=== PATIENT | female | born 1960 | race Caucasian/White ===

== ENCOUNTER 2019-03-10 17:02 | Emergency (ER) | payer MEDICAID ==
[2019-03-10 17:09] VITALS: RESP 18; TEMP 98.2; O2SAT 100
[2019-03-10 17:14] VITALS: BMI 29.5
[2019-03-10] MEDS ORDERED: Sodium Chloride 0.9% 1,000 ML IV STA (17:36)
--- NOTE | 2019-03-10 17:37 | ED PDOC ---
HPI: General Adult Time Seen by Provider: 03/10/19 17:36 Chief Complaint (Nursing): Female Genitourinary Chief Complaint (Provider): urinary hesitancy History Per: Patient (58 y/o female here with urinary hesitancy noted today. States she has had difficulty with diarrhea x 2 weeks. Notes additional back pain with radiation down left leg.) Past Medical History Reviewed: Historical Data, Nursing Documentation, Vital Signs Vital Signs: Last Vital Signs Temp 98.2 F 03/10/19 17:07 Pulse 98 H 03/10/19 17:07 Resp 18 03/10/19 17:07 BP 168/84 H 03/10/19 17:07 Pulse Ox 100 03/10/19 17:07 Primary Care Provider: FAMILY PROVIDER,NO - Family History Family History: States: No Known Family Hx - Allergies Allergies/Adverse Reactions: Allergies Allergy/AdvReac Type Severity Reaction Status Date / Time No Known Allergies Allergy Verified 03/10/19 17:16 Review of Systems ROS Statement: Except As Marked, All Systems Reviewed And Found Negative Physical Exam - Reviewed Nursing Documentation Reviewed: Yes Vital Signs Reviewed: Yes - Physical Exam Appears: Positive for: Well, Non-toxic, No Acute Distress Head Exam: Positive for: ATRAUMATIC, NORMAL INSPECTION, NORMOCEPHALIC Skin: Positive for: Normal Color, Warm, DRY Eye Exam: Positive for: EOMI, Normal appearance, PERRL ENT: Positive for: Normal ENT Inspection Neck: Positive for: Normal, Painless ROM Cardiovascular/Chest: Positive for: Regular Rate, Rhythm Respiratory: Positive for: CNT, Normal Breath Sounds Gastrointestinal/Abdominal: Positive for: Normal Exam, Soft Back: Positive for: Normal Inspection Extremity: Positive for: Normal ROM Neurological/Psych: Positive for: Awake, Alert, Normal Tone - Laboratory Results Result Diagrams: 03/10/19 17:45 03/10/19 17:45 - ECG O2 Sat by Pulse Oximetry: 100 - Progress ED Course And Treament: NS 1 liter 500ml per hour; Bladder scan in ED 77ml noted in bladder. Disposition - Clinical Impression Clinical Impression: Hyponatremia, Diarrhea - Patient ED Disposition Is Patient to be Admitted: No - Disposition Disposition: Routine/Home Disposition Time: 18:45 Condition: FAIR Instructions: Diarrhea in Adolescents and Adults, Hyponatremia Forms: [facility] ED School/Work Excuse Print Language: [place]
[2019-03-10 17:57] LABS: BASO # 0.1 K/uL (0.0-0.2); BASO % 0.8 % (0.0-2.0); EOS % 0.3 % (0.0-4.0); HEMOGLOBIN 12.8 g/dL (12.0-16.0); LYMPH # 3.7 K/uL (1.0-4.3); MEAN CELL VOLUME 91.7 fl (81.0-99.0); MEAN CORPUSCULAR HEMOGLOBIN 31.5 pg (27.0-31.0); MEAN CORPUSCULAR HGB CONC 34.4 g/dL (33.0-37.0); MEAN PLATELET VOLUME 8.3 fl (7.2-11.7); MONO # 0.4 K/uL (0.0-0.8); MONO % 5.1 % (0.0-10.0); NEUT # 4.6 K/uL (1.8-7.0); NEUT % 51.8 % (50.0-75.0); NRBC % 0.1 % (0.0-0.0); RBC 4.06 Mil/uL (3.80-5.20); RED CELL DISTRIBUTION WIDTH 12.9 % (11.5-14.5); WHITE BLOOD COUNT 8.8 K/uL (4.8-10.8)
[2019-03-10 18:02] LABS: SQUAMOUS EPITHIAL < 1 /hpf (0-5); URINE BILIRUBIN NEGATIVE (NEGATIVE); URINE BLOOD NEGATIVE (NEGATIVE); URINE CLARITY CLEAR (Clear); URINE COLOR YELLOW (YELLOW); URINE GLUCOSE (UA) NEG (NEGATIVE); URINE LEUKOCYTE ESTERASE NEG Leu/uL (Negative); URINE PROTEIN NEGATIVE (NEGATIVE); URINE UROBILINOGEN 0.2-1.0 mg/dL (0.2-1.0)
[2019-03-10 18:14] LABS: ALB/GLOB RATIO 1.6 (1.0-2.1); ALBUMIN 4.6 g/dL (3.5-5.0); ALT/SGPT 18 U/L (9-52); AST/SGOT 23 U/L (14-36); BLOOD UREA NITROGEN 6 mg/dl (7-17); CALCIUM 9.6 mg/dL (8.4-10.2); GFR NON-AFRICAN AMERICAN > 60; LIPASE 91 U/L (23-300)
[2019-03-10 19:00] VITALS: BP 152/76; PULSE 77
== END 2019-03-10 18:52 | disposition home or self-care (01) ==
LOC: H.ER 17:02
DX: R19.7 Diarrhea, unspecified (principal); E87.1 Hypo-osmolality and hyponatremia
CPT/HCPCS: 80053; 81003; 83690; 83735; 85025; 99284; J7030